=== PATIENT | female | born 1980 | race Hispanic/Latino ===

== ENCOUNTER 2016-12-02 02:59 | Inpatient (IN) | payer MEDICAID ==
[~2016-12-02] VITALS: Ht 156.2 cm; Wt 86.6 kg
[~2016-12-02 02:59] MED LIST: DOCU-42 PO; IBUP-1149 PO; PNV1CAPS PO
[2016-12-02] MEDS ORDERED: Lactated Ringer's 1,000 ML IV PRN (07:06)
[2016-12-02] MEDS ORDERED: Methylergonovine 0.2 mg/mL Inj IM PRN ×3 (07:10→14:30)
[2016-12-02] MEDS ORDERED: Oxytocin 30 Units/500 mL LR 30 UNITS in IV Premix 1 EACH IV PRN ×2 (07:10→14:30)
[2016-12-02] MEDS ORDERED: fentaNYL-PF 50 mCg/mL 2 mL Inj IVPUSH PRN ×2 (07:10→12:15)
[2016-12-02] MEDS ORDERED: Hemorrhage Kit, Post Partum XX ONE ×3 (07:10→14:30)
[2016-12-02] MEDS ORDERED: Sodium Chloride LOK Flush 10 mL Syringe IVFLUSH PRN ×2 (07:10→14:30)
[2016-12-02] MEDS ORDERED: Oxytocin 10 Unit/mL Inj IM PRN ×2 (07:10→14:30)
[2016-12-02] MEDS ORDERED: Carboprost 250 mCg/mL Inj IM PRN ×3 (07:10→14:30)
[2016-12-02] MEDS ORDERED: Ondansetron 2 mg/mL 2 mL Inj IVPUSH PRN (07:10)
[2016-12-02 08:39] LABS: Mean Corpuscular Volume 91.8 fL (81-100)
--- NOTE | 2016-12-02 08:56 | HP ---
[address] [address] HISTORY AND PHYSICAL PATIENT: SHERLY TOSCANO : 1980 MR#: [id number] ADMIT: 12/02/2016 JOB ID: [id number] IDENTIFYING DATA/CHIEF COMPLAINT: The patient is a 36-year-old G 6, P 2 at 39 and 6/7 weeks with gestational diabetes admitted for induction. HISTORY OF PRESENT ILLNESS: The patient comes in today for induction. Indication is gestational diabetes, also macrosomia, with an estimated weight of around 4300 g. The patient has had consultation with Maternal Medicine at the [facility] who discussed option of a primary . Given that patient has delivered two 9 pound babies previously, with (largest baby of 4431 g, 9 pounds 13 ounces), it is felt reasonable to attempt induction. She has been feeling well, her sugars have been well controlled. She has had a couple of contractions last night, none since. No rupture of membranes. No bleeding. movements have been normal. She has not been ill. No fevers, no dysuria, no cough, no sore throat, no headaches, no difficulty breathing. No known drug allergies. MEDICATIONS: vitamins only. CURRENT HISTORY: EDC of December 03, 2016 based on a six week ultrasound crown-rump length, had irregular LMP prior. The main complication has been gestational diabetes, for which she has had a quite excellent blood sugar control, though with size greater than dates consistently. Did have an elevated quad screen with a neural tube defect risk of 1 in 155. She had multiple subsequent ultrasounds which show no evidence of a defect. GBS negative. O positive. RPR nonreactive. Rubella immune. Hepatitis B surface antigen negative. HIV negative. Urine gonorrhea/chlamydia negative. The patient does desire a tubal ligation. A consent was signed August 23, 2016, patient was counseled with Dr. Ibarra on September 13, 2016. The patient did have hematocrit of 33.6 at 33 weeks, is consistent with previous results. PAST HISTORY: The first two pregnancies resulted in SAB, then delivered vaginally 13 years ago, over 9 pounds, though records not available. Fourth resulted in SAB, which may have been early second trimester. Most recent 2010. Delivery was 9 pounds 13 ounces or 4481 g. PAST MEDICAL/SURGICAL HISTORY: She has no histories. No hospitalizations outside for unknown related conditions. No history of asthma or hypertension. No history of blood sugar problems outside of pregnancies. 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 She does not smoke. No alcohol use. No drug use. Supportive partner (Fred). OBJECTIVE: Vital signs are stable. She is in no acute distress. Pleasant, cooperative. Cardiovascular: Regular rate and rhythm. S1, S2. No murmurs, gallops, rubs. Lungs: Clear to auscultation bilateral without crackles, rubs or wheezes. Abdomen is soft, gravid. Baby is vertex. Estimated weight 9.5 pounds. Lower extremities are without edema. Cervix is closed internal os. External os 2 cm. She appears about 50% effaced, very soft, mid position, ballotable, -3 station. Dominique score of 4. strip shows a baseline is category 1. Baseline in the 140s. Good accels. Moderate variability with no decels. Some intermittent uterine irritability (patient not feeling contractions) on toco. CBC still pending. ASSESSMENT AND PLAN: A 36-year-old multip with gestational diabetes, macrosomia. History of previous successful delivery of macrosomic infants. Induction today, as her cervix is not currently favorable, we will start with Cytotec. Case has been discussed with OB provider (Dr. Ibarra). Will follow labor curve carefully, and consider a if patient not progressing adequately.
[2016-12-02] MEDS: Misoprostol 25 mCg/0.25 Tablet VAGINAL SCH ×5 (08:58→23:10)
[2016-12-02] MEDS ORDERED: fentaNYL-PF 50 mCg/mL 2 mL Inj ONE (10:20)
[2016-12-02] MEDS ORDERED: Bupivacaine-MPF 0.75% 30 mL Inj ONE (10:20)
[2016-12-02] MEDS ORDERED: Phenylephrine/NS 100 mCg/mL 10 mL Syringe IVPUSH ONE (10:20)
[2016-12-02] MEDS ORDERED: Morphine PF 1 mg/mL 10 mL Inj ONE ×2 (10:20→12:00)
[2016-12-02] MEDS ORDERED: Lactated Ringer's 1,000 ML IV SCH (10:33)
[2016-12-02] MEDS ORDERED: Sodium Citrate-Citric Acid 15 mL Solution PO SCH (10:35)
[2016-12-02] MEDS ORDERED: CeFAZolin 2 Gm/50 mL D5W IV Premix IV ONE (12:00)
--- NOTE | 2016-12-02 12:12 | PCM.HPANE ---
Patient Data Surgeon Admitting Provider:Esau Brewer MD Attending Provider:Esau Brewer MD Primary Care Physician:Esau Brewer MD Other Provider:Alejandrina Maxingham Anesthesia Reason for Visit Induction INDUCTION Ht/WT & BMI Body Mass Index Allergies Coded Allergies: No Known Allergies (Unverified , 12/02/16) Diabetes History Hx Diabetes?: Yes Type of Diabetes: Diet Controlled Medications Reported Medications IBUPROFEN-Expunged Drug, Do Not Renew! 600 Mg [id number] Mg PO Q6 PRN 07/07/11 Docusate Sod-Expunged Drug, Do Not Renew! 100 Mg [id number] Mg PO DAILY 07/07/11 Pnv Comb.no58/Iron Bisgly/Fa-Expunged Drug, D (-Expunged Drug, Do Not Renew!)1 Each Capsule1 Each PO DAILY #1 07/05/11 History History of ENT Problems?: No Hx of Heart Problems?: No Hx of Respiratory Problem?: No Hx Neurologic Problems?: No Other History/Comment Occasional reflux, related Female Hx: Positive for:: Currently Other History/Comment at term with macrosomia and Gestational Diabetes, for primary CS Hx Musculoskeletal Problems?: No Hx of Psycho/Social Problems?: No Hx Surgeries?: No Hx Diabetes: Yes Hx Alcohol Use: NoHx Substance Use: No Smoking Status: Never Smoker Stop/Bang Risk Assessment Category Category 1A: Patient has history of documented sleep apnea, and HAS NOT received any narcotic, sedative or anesthesia administration during this stay. Category 1B: Patient has history of documented sleep apnea, and HAS received any narcotic , sedative or anesthesia administration during this stay Category 2: Patient has SUSPECTED Obstructive Sleep Apnea, and HAS received any narcotic , sedative or anesthesia administration during this stay. Category 3: Patient has SUSPECTED Obstructive Sleep Apnea and HAS NOT received narcotic, sedative or anesthesia administration during this stay. Category 4: Outpatient in Procedural Areas with known sleep apnea or who screen positive for High Risk via the STOP/BANG questionnaire. Exam Exam General Appearance: Alert, Oriented X3, Cooperative HEENT/AIRWAY: MP 2 Lungs: Clear to Auscultation Heart: Exam Unremarkable, Regular Rate/Rhythm, Normal S1, Normal S2 Meds/Labs/Diagnostics Admission Meds Current Medications Misoprostol (Cytotec) 25 mcg Q4H VAGINAL Last administered on 12/02/16t 08:58; Start 12/02/16 at 07:10 Labs Test 12/02/16 08:30 White Blood Count 7.6th/mm3 (3.8-10.1) Red Blood Count 4.13mil/mm3 (3.90-5.20) Hemoglobin 13.2g/dL (12.0-15.6) Hematocrit 37.9% (35.0-46.0) Mean Corpuscular Volume 91.8fL (81-100) Mean Corpuscular Hemoglobin 32.0pg (27.0-35.0) Mean Corpuscular Hemoglobin Concent 34.8% (32.0-37.0) Red Cell Distribution Width 14.5% (12.3-15.4) Platelet Count 170bil/L (150-400) Plan Impression Patient chart reviewed, patient interviewed and anesthestic plan with risks, benefits, and alternatives discussed, and informed consent obtained. ASA Physical Status: ASA2 Mod Systemic Disease Anesthetic Plan: SAB Bene/Risks/Altern/Consents: Yes HP Complete Prior to Induction: Yes Maico Recinos MD Dec 02, 2016 12:12
[2016-12-02] MEDS ORDERED: Atropine 0.4 mg/mL Inj IV PRN (12:15)
[2016-12-02] MEDS ORDERED: EPHEDrine Sulfate 50 mg/mL Inj IVPUSH PRN (12:15)
--- NOTE | 2016-12-02 13:45 | CONS ---
[address] [address] CONSULTATION REPORT PATIENT: SHERLY TOSCANO : 1980 MR#: [id number] ADMIT: 12/02/2016 JOB ID: [id number] DATE OF SERVICE: 12/02/2016 REASON FOR CONSULT: Term intrauterine with gestational diabetes, diet controlled, and suspected macrosomia. HISTORY OF PRESENTING ILLNESS: This is a 24-pqwdi-huh 6, para 2-0-3-2 at 39 weeks and 6 days dated by a six weeks ultrasound who presented for scheduled induction of labor, with no complaints. This is complicated by gestational diabetes that is diet controlled but with suspected macrosomia based on Maternal Medicine consult at 37 weeks and 4 days. Ultrasound was done on November 16, 2016. Estimated weight was 8 pounds 15 ounces, equivalent to 4065 g at 99th percentile. Head circumference at 41 weeks and five days. Abdominal circumference at 41 weeks and 1 day. Femur length at 37 weeks and 3 days. PAST OBSTETRIC HISTORY: The 1st was SAB, a blighted ovum. The 2nd was SAB at approximately 3-1/2 months. Third was a full-term delivery of a male infant. Weight was 3 kg and 700 g. The 4th was a missed AB at 16 weeks. Fifth was a full-term vaginal delivery of a male infant. Weight was 9 pounds 11 ounces at [facility] with no complications. PAST MEDICAL HISTORY: Noncontributory. PAST SURGICAL HISTORY: Noncontributory. MEDICATIONS: vitamins. ALLERGIES: No known drug allergies. SOCIAL HISTORY: Denies alcohol, tobacco, or illicit drug abuse. FAMILY HISTORY: Noncontributory. PHYSICAL EXAMINATION: Alert. Oriented to time, place, and person. Head: Normocephalic, atraumatic. Neck: Supple. Respiratory: Equal air entry bilaterally. No added sounds. Cardiovascular: S1 plus S2 plus zero. Regular rate and rhythm. Lower extremities: Positive pulses bilaterally. No edema. Abdomen: Gravid. Estimated weight by Scotty maneuver 9.5 pounds. Blood pressure 120/63, heart rate 68, respiratory rate 20, oxygen saturation 96% on room air, temperature 36.8. heart tones baseline 140, moderate variability. Positive accelerations. No decelerations. Contractions irregular. LABORATORIES: labs: O positive, antibody screen negative, hepatitis screen negative, HIV negative. Three-hour glucose screen: Fasting 75, 1-hour 164, 2 hours 212, 3 hours 193. Neural tube defect screen risk elevated at 1:155. Down syndrome risk is low 1:5000. Trisomy 18 risk is 1:5000. ASSESSMENT AND PLAN: This is a 36-year-old 6, para 2-0-3-2 at 39 weeks and 6 days dated by six week ultrasound with suspected macrosomia. The patient was counseled by Maternal Medicine earlier with suspected risk of dystocia to be around 18% to 20% and the patient was offered a primary section or a trial of labor. The patient initially chose to go with a trial of labor. The patient was counseled again by Vamsi Ibarra MD. Reviewed risk of shoulder dystocia. Expected risk of shoulder dystocia as per Maternal Medicine estimation is 18% to 20%. I explained shoulder dystocia complications which may include but not limited to anoxia with mental and physical consequences, risk of , risk of brachial plexus injury, and Erb's palsy. These were reviewed with the patient. Compared to the risk of primary section which include but not limited to risk of infection, bleeding, injury to other organs, risk of blood transfusion, risk of anesthesia, risk of respiratory distress to the fetus or laceration. This discussion was carried out with the assistance of an wax specialist in the patient's [place] language. Also explained the limitation of ultrasound with the risk of overestimation or underestimation macrosomia. The patient confirmed understanding and she desires to proceed with a primary section. The patient desires tubal ligation. Consent was signed on August 23, 2017. The patient confirmed desire to proceed with tubal ligation today. She understands tubal ligation is not reversible procedure with risk of failure and increased risk of ectopic if failed tubal ligation and would occur. Informed consents were signed. All questions were answered. Will proceed with primary section and tubal ligation. DARINEL
[2016-12-02] MEDS: Lactated Ringer's 1,000 ML IV SCH ×5 (14:27→23:06)
[2016-12-02] MEDS ORDERED: diphenhydrAMINE 50 mg Capsule PO PRN (14:30)
[2016-12-02] MEDS ORDERED: LANOlin HPA 7 Gm Ointment TOPICAL PRN (14:30)
[2016-12-02] MEDS: Acetaminophen IV 1,000 MG in IV Premix 1 EACH IV PRN ×2 (16:03→22:27)
--- NOTE | 2016-12-02 17:08 | PCM.ANEP1 ---
Post Anesthesia Phase 1 PACU Phase 1 Assessment Anesthetic Administered: SAB Pain Scale Score: 0 Nausea or Vomiting: No Oxygen Delivery: Room Air Lungs: Clear to Auscultation Dermatome Level: Full Sensation Maico Recinos MD Dec 02, 2016 17:07
--- NOTE | 2016-12-02 17:08 | PCM.ANEP2 ---
Post Anesthesia Evaluation ASA/CMS Post Anesthesia VS in Patient's Normal Range?: Yes Resp Stable; Airway Patent?: Yes CV Function & Hydration Stable: Yes Mental Status Recovered?: Yes Pain control Satisfactory?: Yes N/V Control Satisfactory?: Yes Maico Recinos MD Dec 02, 2016 17:08
--- NOTE | 2016-12-02 19:42 | PCM.PNOBPP ---
Subjective Date of Service Dec 02, 2016 Labs Laboratory Tests 12/02/16 08:30: White Blood Count 7.6, Red Blood Count 4.13, Hemoglobin 13.2, Hematocrit 37.9, Mean Corpuscular Volume 91.8, Mean Corpuscular Hemoglobin 32.0, Mean Corpuscular Hemoglobin Concent 34.8, Red Cell Distribution Width 14.5, Platelet Count 170 Exam Vital Signs Vital Signs Vital Signs Date Time Temp Pulse Resp B/P Pulse Ox O2 Delivery O2 Flow Rate FiO2 12/02/16 17:08 Room Air OB Post Assessment/Plan Assessment Called to room for bleeding. Patient is A&O, NAD, communicative. Denies symptoms. A chucks is noted to be saturated, ~75%. her uterus is firm, above the umbilicus. With bimanual massage, minimal bleeding obtained. She had a second bag with Pitocin and 800mcg of cytotec postoperatively already. Will give IM methergine followed by oral Q6 hours for 24 hours. CBC ordered and drawn while I was in the room / MD Fatou Mendoza Jean E MD Dec 02, 2016 19:42
[2016-12-02 19:49] LABS: BASOPHILS % (AUTO) 0.1 % (0-3); EOSINOPHILS % (AUTO) 0.1 % (0-5); MONOCYTES % (AUTO) 4.9 % (4-12); Mean Corpuscular Hemoglobin 32.2 pg (27.0-35.0); Mean Corpuscular Volume 92.5 fL (81-100); NEUTROPHILS % (AUTO) 84.6 % (40-74); Platelet Count 154 bil/L (150-400)
--- NOTE | 2016-12-03 01:32 | OP ---
[address] [address] OPERATIVE REPORT PATIENT: SHERLY TOSCANO : 1980 MR#: [id number] ADMIT: 12/02/2016 JOB ID: [id number] DATE OF SURGERY: 12/02/2016 PREOPERATIVE DIAGNOSIS(ES): 1. Intrauterine at 39 weeks and 6 days. 2. Gestational diabetes, diet controlled. 3. Suspected macrosomia. POSTOPERATIVE DIAGNOSIS(ES): 1. Intrauterine at 39 weeks and 6 days. 2. Gestational diabetes, diet controlled. 3. Suspected macrosomia. OPERATION: 1. Primary section. 2. Bilateral tubal ligation. SURGEON: Vamsi Ibarra MD. VENEER LATHE OPERATOR: Esau Brewer MD. Snout Puller was required for retraction, exposure and delivery of the . INTRAVENOUS FLUID: 2400 ml. ESTIMATED BLOOD LOSS: 700 mL. URINE OUTPUT: 600 mL of clear urine. COMPLICATIONS: None. FINDINGS: Normal uterus, tubes and ovaries. Female infant delivered in occiput transverse position, was high in the pelvis with no engagement. One nuchal cord was released without difficulty. Clear amniotic fluid. Infant weight 4412 g ,equivalent to 9 pounds 12 ounces. INDICATION: This is a 36 years old, 6, para 2-0-3-2, at 39 weeks and 6 days, dated by six weeks ultrasound with suspected macrosomia. The patient was seen and counseled earlier by Maternal Medicine at 37 weeks with suspected macrosomia as the growth was at 99 percentile with estimated weight of 4065 g at 37 weeks and 4 days, with estimated risk of shoulder dystocia to be around 18% to 20%, and the patient was offered a primary section or trial of labor with strict curve monitoring for progress of labor. The patient initially chose to go with a trial of labor and she was admitted for induction today. Patient was counseled by her primary family medicine provider and chose to go with a trial of labor, and induction started with Cytotec today. I was consulted and I counseled the patient again, and reviewed the risk of shoulder dystocia with assistance of a historical interpreter. Shoulder dystocia complications were reviewed with the patient, which may include, and not limited to, risk of brain anoxia with mental and physical consequences, risk of and risk of brachial plexus injury and Erb's palsy. Also, reviewed the risks of primary section, which may include, and not limited to, risk of infection, bleeding, injury to other organs, risk of blood transfusion, risk of anesthesia, risk of respiratory distress to the fetus, and risk of laceration. Also, explained the limitation of ultrasound in estimating the weight, which could be under-estimated or over-estimated. The patient confirmed understanding and she desires to proceed with primary section. The patient desires tubal ligation. Consent was signed on August 23, 2017. The patient confirmed desire to proceed with tubal ligation. She understands tubal ligation is not a reversible procedure, with risk of failure and increased risk of ectopic , failed tubal ligation. Patient is aware with alternatives to tubal ligations LARC and male sterilizations. Informed consent was obtained and signed. DESCRIPTION OF PROCEDURE: After informed consent was obtained, the patient was taken to the operation room. She was placed under spinal anesthesia and then she was placed in supine position with left lateral tilt. She was draped after abdominal and pelvic prep. After confirmation of adequate anesthesia, a Pfannenstiel skin incision was made at the level of two finger widths above the symphysis pubis. The incision was carried down to the fascia with sharp dissection. The initial fascial incision was made with a scalpel. Then, it was extended bilaterally in curvilinear fashion with curved Rene scissors. Then, the inferior edge of the fascia was grasped on either side of the midline and was dissected off the underlying rectus muscles with sharp and blunt dissection. The superior aspect of the fascia was grasped with Deonte clamps and was dissected off underlying rectus muscles with blunt and sharp dissection. The rectus muscles then were in the midline. The peritoneum was identified, an area clear of vascularity and bowel that was elevated with two hemostats and was entered sharply. The incision was extended laterally with gentle traction. Then, the peritoneal incision was further extended with Metzenbaum scissors. Bladder blade was placed and the bladder reflection was identified. The bladder flap was created with Metzenbaum scissors. The bladder blade was repositioned to protect the bladder. Then, the uterine incision was made with a scalpel and was extended laterally with bandage scissors. Clear amniotic fluid was noticed. The 's head was in occiput transverse position high in the pelvis with no signs of engagement. The head was delivered in occiput transverse position. Nuchal cord was relieved and the shoulders were delivered with the assistance of fundal pressure. The cord was clamped and cut, and the was handed off to the awaiting ICU staff. Cord blood was collected. Placenta was delivered spontaneously intact with three-vessel cord. The uterus was delivered and cleared of any remaining clots and debris. The uterine incision was closed with 0-Vicryl in a running interlocking fashion. A second imbricating layer using 0 Monocryl was performed with good hemostasis. The fallopian tubes and ovary were examined and normal appearance was noted. Then, attention was turned to the tubal ligation part of the procedure. The right fallopian tube was grasped with [place] clamp at the middle segment and an area clear of vascularity in the mesosalpinx was identified, and a window was created with Bovie cautery. Then, the middle segment of the tube, approximately 3 cm, were double tied bilaterally and was excised. The stump of the remaining tube was examined and gentle cautery was performed for hemostasis. Same procedure was performed in the left fallopian tube that was elevated in the midline using Deonte clamps, area clear of vascularity was identified, and a window was created with Bovie cautery. Then, the middle segment of the tube, approximately 4 cm, was double ligated bilaterally and was excised. The stump of the remaining tube were examined and gentle cautery was performed for hemostasis. The tube was examined and hemostasis was ensured and the posterior cul-de-sac was cleared of any remaining clots and debris, and the uterus was placed back into the peritoneal cavity. Lateral gutters were cleared of any remaining clots and debris, and a second examination of both fallopian tubes was performed with good hemostasis. Then, the uterine incision was examined and hemostasis was ensured. The rectus muscles were approximated in the midline with simple interrupted stitches. The subfascial layer was examined and hemostasis was ensured. Then, the fascia was closed with 0-Vicryl in a running fashion. The subcutaneous layer was approximated with simple interrupted stitches of 2-0 chromic. The skin was closed with 4-0 Vicryl in subcuticular fashion, followed by Steri-Strips. All instruments, needles and sponge counts were correct x2. The patient and infant were transferred to the recovery room in stable condition. Vamsi Sherwood MD was present and scrubbed for the entire procedure. DARINEL
[2016-12-03] MEDS: Misoprostol 25 mCg/0.25 Tablet VAGINAL SCH ×2 (03:10→07:10)
[2016-12-03] MEDS: Lactated Ringer's 1,000 ML IV SCH ×2 (06:27→07:06)
[2016-12-03 07:09] LABS: Mean Corpuscular Hemoglobin 31.8 pg (27.0-35.0); Mean Corpuscular Volume 93.3 fL (81-100)
[2016-12-03] MEDS ORDERED: Ascorbic Acid 500 mg Tablet PO SCH (08:00)
[2016-12-03] MEDS: oxyCODONE-Acetamin 5-325 mg Tablet PO PRN ×4 (08:13→19:59)
--- NOTE | 2016-12-03 16:11 | PCM.PNOBPP ---
Subjective Date of Service Dec 03, 2016 Lochia: Normal Pain Management: PO pain meds, Good Pain Control Gastrointestinal: Good Appetite, No N/V Postop Activity: Ambulate without Assist Labs Laboratory Tests 12/02/16 19:33: Neutrophils (%) (Auto) 84.6, Lymphocytes (%) (Auto) 9.9, Monocytes (%) (Auto) 4.9, Eosinophils (%) (Auto) 0.1, Basophils (%) (Auto) 0.1 12/03/16 06:45: White Blood Count 9.1, Red Blood Count 3.27, Mean Corpuscular Volume 93.3, Mean Corpuscular Hemoglobin 31.8, Mean Corpuscular Hemoglobin Concent 34.1, Red Cell Distribution Width 14.2, Platelet Count 145 12/03/16 13:00: Hemoglobin 10.4, Hematocrit 30.6 Exam Vital Signs Vital Signs 110/56 HR 61 RR16 T 36.5 99% on RA Exam Abdomen: Fundus firm Extremities: No edema Lungs: Clear to Auscultation Heart: Normal S1, Normal S2 General: Alert, Oriented X3 Surgical Wound : Incision General Appearence: Steri Strips, Sutures, Intact, Well Approximated, Incision Healing, No Erythemia, No Discharge OB Post Assessment/Plan Assessment This is a 36 years old, 6, para now 3-0-3-3, 1. POD#1 S/P Primary section and bilateral tubal ligation at 39 weeks and 6 days for suspected macrosomia. 2. Anemia secondary to hemorrhage , improved after Pitocin 70 IU Methergine and Misoprostol. Hgb stable at 10.4, started on iron daily. Pain Management: Continue PO medications. Appropriate post operative recovery. Anticipate discharge tomorrow. Pain Evaluation: Adequate Pain Control Post plan: Continue routine post care Vamsi Ibarra MD Dec 03, 2016 16:11
--- NOTE | 2016-12-03 16:34 | PCM.DIOB ---
Obstetrical Disch Instruction Date of Service: Dec 04, 2016 Dates of Hospitalization Date of Hospital Admission Dec 02, 2016 at 06:56 Providers Admitting Physician: Vamsi Ibarra MD Primary Care Physician: Esau Brewer MD Attending Physician: Vamsi Ibarra MD Discharge Diagnosis Discharge Diagnosis 1. Status post primary section and bilateral tubal ligation. 2. Anemia secondary to hemorrhage. Post Operative diagnosis 1. Status post primary section and bilateral tubal ligation. 2. Anemia secondary to hemorrhage. Problems: Diet Discharge Diet: Diabetic Activity Discharge Activity-General: Pelvic Rest for 6 weeks (No sex, no douching and no tampons. ), Be up and about, Balance rest and activity, No lifting >10 pounds for 4-6 weeks Dressing and Incisional Care Dressing Care: Allow Steri Stripes to fall off Hygiene: May shower after, Wash incision with soap & water, DO NOT soak incision under water, NO bathtub, hot tub or whirlpool Follow Up Plan Follow-up Provider (F9): Vamsi Ibarra MD Follow-up appointment: Weeks (2, then follow up with in 6 weeks. ) Call your provider for: Fever or Chills, Shortness of breath, Heavy vaginal bleeding, Heavy bleeding, Epigastric pain, Excessive constipation, Vaginal discomfort, Red painful breasts, Other (Headache, change in vision, nausea or vomiting , leg swelling or pain. ) Vamsi Ibarra MD Dec 03, 2016 16:21
--- NOTE | 2016-12-03 16:40 | PCM.DC.OB ---
Obstetrical Discharge Summary Date of Service Dec 04, 2016 Date of hospital admission Dec 04, 2016 at 06:56 Date of Discharge: Dec 03, 2016 Providers Admitting Physician: Nakia Caldwell MD Primary Care Physician: Esau Brewer MD Attending Physician: Nakia Caldwell MD Diagnosis at Time of Discharge 1. Status post primary section and bilateral tubal ligation. 2. Anemia secondary to hemorrhage. Post Operative diagnosis 1. Status post primary section and bilateral tubal ligation. 2. Anemia secondary to hemorrhage. Problems: Hospital Course: This is a 36 years old, 6, para now 3-0-3-3, 1. POD#2 S/P Primary section and bilateral tubal ligation on 12/02/16 at 39 weeks and 6 days for suspected macrosomia. Outcome: Female infant delivered in occiput transverse position, was high in the pelvis with no engagement. One nuchal cord was released without difficulty. Clear amniotic fluid. weight 4412 g ,equivalent to 9 pounds 12 ounces. 2. Anemia secondary to hemorrhage , improved after Pitocin 70 IU Methergine and Misoprostol. Hgb stable at 10.4, started on iron and vitamin C daily. Normal post op recovery and was ready for discharge 12/04/16. Discharge Day Exam: Lochia: Normal Pain Management: PO pain meds, Good Pain Control Gastrointestinal: Good Appetite, No N/V Postop Activity: Ambulate without Assist Labs Laboratory Tests 12/02/16 19:33: Neutrophils (%) (Auto) 84.6, Lymphocytes (%) (Auto) 9.9, Monocytes (%) (Auto) 4.9, Eosinophils (%) (Auto) 0.1, Basophils (%) (Auto) 0.1 12/03/16 06:45: White Blood Count 9.1, Red Blood Count 3.27, Mean Corpuscular Volume 93.3, Mean Corpuscular Hemoglobin 31.8, Mean Corpuscular Hemoglobin Concent 34.1, Red Cell Distribution Width 14.2, Platelet Count 145 12/03/16 13:00: Hemoglobin 10.4, Hematocrit 30.6 OB Exam Exam Vital Signs Vital Signs 103/56 HR 64 RR16 T 36.4 96% on RA Exam Abdomen: Fundus firm Extremities: No edema Lungs: Clear to Auscultation Heart: Normal S1, Normal S2 General: Alert, Oriented X3 Surgical Wound : Incision General Appearence: Steri Strips, Sutures, Intact, Well Approximated, Incision Healing, No Erythemia, No Discharge ([Ascorbic Acid]) 500 MG TABLET 500 MG PO DAILY Take with Iron tablet Prescribed by: NAKIA CALDWELL MD Docusate Sodium (Colace) 100 Mg Capsule 100 MG PO BIDWM PRN PRN For Constipation Prescribed by: NAKIA CLADWELL MD Ferrous Sulfate (Feosol) 325 Mg Tablet 325 MG PO DAILY Prescribed by: NAKIA CALDWELL MD Ibuprofen (Ibuprofen) 600 Mg Tablet 600 MG PO Q6H PRN PRN For Pain Prescribed by: NAKIA CALDWELL MD Pnv Comb.no58/Iron Bisgly/Fa-Expunged Drug, D (-Expunged Drug, Do Not Renew!) 1 Each Capsule 1 EACH PO DAILY (Reported) oxyCODONE-Acetaminophen 5-325 mg (oxyCODONE-Acetaminophen 5-325 mg) 1 Each Tablet 1-2 TAB PO Q4H PRN PRN For Pain Prescribed by: NAKIA CALDWELL MD Discontinued Medications Docusate Sod-Expunged Drug, Do Not Renew! (Docusate Sod-Expunged Drug, Do Not Renew!) 100 Mg Capsule 200 MG PO DAILY (Reported) IBUPROFEN-Expunged Drug, Do Not Renew! (IBUPROFEN-Expunged Drug, Do Not Renew!) 600 Mg Tablet 600 MG PO Q6 PRN PRN (Reported) Disposition Disposition: home. Discharge condition: stable. Diet Discharge Diet: Diabetic Activity Discharge Activity-General: Pelvic Rest for 6 weeks (No sex, no douching and no tampons. ), Be up and about, Balance rest and activity, No lifting >10 pounds for 4-6 weeks Dressing and Incisional Care Dressing Care: Allow Steri Stripes to fall off Hygiene: May shower after, Wash incision with soap & water, DO NOT soak incision under water, NO bathtub, hot tub or whirlpool Follow Up Plan Follow-up Provider (F9): Nakia Caldwell MD Follow-up appointment: Weeks (2, then follow up with Dr.Winkes in 6 weeks. ) Call your provider for: Fever or Chills, Shortness of breath, Heavy vaginal bleeding, Heavy bleeding, Epigastric pain, Excessive constipation, Vaginal discomfort, Red painful breasts, Other (Headache, change in vision, nausea or vomiting , leg swelling or pain. ) Nakia Caldwell MD Dec 03, 2016 16:21 Nakia Caldwell MD Dec 03, 2016 16:39
[2016-12-04] MEDS: oxyCODONE-Acetamin 5-325 mg Tablet PO PRN ×5 (00:53→16:00)
[2016-12-04] MEDS ORDERED: Ascorbic Acid 500 mg Tablet PO SCH (08:30)
[2016-12-04] MEDS ORDERED: Ascorbic Acid PO (08:54)
[2016-12-04] MEDS ORDERED: OXYC1TAB24 PO (08:54)
[2016-12-04] MEDS ORDERED: IBUP-1827 PO (08:54)
[2016-12-04] MEDS ORDERED: DOCU-41 PO (08:54)
[2016-12-04] MEDS ORDERED: FERR-74 PO (08:55)
[2016-12-04 15:31] VITALS: BP 108/62; PULSE 66; RESP 16
--- NOTE | 2016-12-06 11:19 | PATH ---
SURGICAL PATHOLOGY Attending Physician:Vamsi Ibarra CASE STATUS: Signed Out PATIENT NAME: SHERLY MOISE PID: [id number] : 1980 DATE COLLECTED:12/02/2016 22:49 SPECIMEN: 1: Fallopian Tube, Sterilization 2: Fallopian Tube, Sterilization CLINICAL HISTORY: DESIRES STERILIZATION 1). LEFT FALLOPIAN TUBE SEGMENT 2). RIGHT FALLOPIAN TUBE SEGMENT FINAL DIAGNOSIS: 1. 2.SEGMENTS OF LEFT AND RIGHT FALLOPIAN TUBES (STERILIZATION PROCEDURE): NO SIGNIFICANT PATHOLOGIC CHANGE. ICD10 CODE Z30.2 GROSS DESCRIPTION: The specimen is received in 2 containers not labeled as to the fixative, labeled with the patient's name. 1). The specimen is labeled "L tube" and consists of a 1.5 x 0.6 x 0.6 CM cylindrical shaped portion of tissue. The specimen is inked blue, sectioned into 4 pieces and entirely submitted in cassette 1A. 2). The specimen is labeled "R tube" and consists of a 1.2 x 0.7 x 0.6 CM cylindrical-shaped portion of tissue. The specimen is inked blue, sectioned into 4 pieces and entirely submitted in cassette 2A. 12/02/2016 DAC MICRO DESCRIPTION: See diagnosis. ICD-9 CODES: CPT CODES: 1: 49596 2: 80985 Electronically Signed Out Tani Olivo MD [facility] [address] [facility], [place] [address] Technical component performed at [facility], [address] [place] [address] Ave[address], [place], [address]
== END 2016-12-04 16:40 | disposition home or self-care (01) | DRG 765 ==
LOC: FBC 06:56
PROVIDERS: ADMIT Obstetrics & Gynecology; ATTEND Family Medicine
PROC: 3E0P7GC Introduction of Other Therapeutic Substance into Female Reproductive, Via Natural or Artificial Opening (ICD-10-PCS; 2016-12-02)
PROC: 10D00Z1 Extraction of Products of Conception, Low, Open Approach (ICD-10-PCS; principal; 2016-12-03)
PROC: 0UL70CZ Occlusion of Bilateral Fallopian Tubes with Extraluminal Device, Open Approach (ICD-10-PCS; 2016-12-03)
DX: O24.420 Gestational diabetes mellitus in childbirth, diet controlled (principal); O72.1 Other immediate postpartum hemorrhage; O36.63X0 Maternal care for excessive fetal growth, third trimester, not applicable or unspecified; O32.2XX0 Maternal care for transverse and oblique lie, not applicable or unspecified; Z3A.39 39 weeks gestation of pregnancy; Z37.0 Single live birth